=== PATIENT | female | born 1965 | race Asian ===

== ENCOUNTER 2017-05-11 15:49 | Emergency (ER) | payer OTHER ==
[~2017-05-11] VITALS: Ht 157.5 cm; Wt 61.0 kg
[2017-05-11 16:04] VITALS: BP 150/98
== END 2017-05-11 18:08 | disposition home or self-care (01) ==
LOC: ED 18:00
DX: B02.9 Zoster without complications (principal); M06.9 Rheumatoid arthritis, unspecified
CPT/HCPCS: 99283

== ENCOUNTER 2017-10-04 08:28 | Inpatient (IN) | payer OTHER ==
[~2017-10-04] VITALS: Ht 154.9 cm; Wt 67.3 kg
[2017-10-04] MEDS ORDERED: SODIUM CHLORIDE FLUSH 10ML SYR IVF ONE (09:00)
[2017-10-04] MEDS ORDERED: SODIUM CHLORIDE 0.9% 1,000ML IVBOLUS ONE (09:00)
[2017-10-04] MEDS ORDERED: MORPHINE SULFATE 4 MG/ML, 1ML IVPush PRN ×3 (09:00→19:30)
[2017-10-04] MEDS ORDERED: ONDANSETRON 2MG/ML, 2ML IVPush ONE (09:00)
[2017-10-04] MEDS ORDERED: MORPHINE SULFATE 4 MG/ML, 1ML ONE (09:09)
[2017-10-04] MEDS ORDERED: ONDANSETRON 2MG/ML, 2ML ONE ×2 (09:09→10:58)
[2017-10-04 10:34] LABS: BASOPHILS # (AUTO) 0.03 x10^3/uL (0-0.1); BASOPHILS % (AUTO) 0 % (0-1); EOSINOPHILS # (AUTO) 0.05 x10^3/uL (0-0.4); EOSINOPHILS % (AUTO) 1 % (1-7); LYMPHOCYTES # (AUTO) 0.85 x10^3/uL (1-3.4); LYMPHOCYTES % (AUTO) 8 % (22-44); MD NO; MEAN CORPUSCULAR HEMOGLOBIN 32.5 pg (27.0-34.8); MEAN CORPUSCULAR HGB CONC 34.2 g/dL (32.4-35.8); MEAN CORPUSCULAR VOLUME 95.1 fL (80-100); MEAN PLATELET VOLUME 11.1 fL (7.4-10.4); MONOCYTES # (AUTO) 0.39 x10^3/uL (0.2-0.8); MONOCYTES % (AUTO) 4 % (2-9); NEUTROPHILS # (AUTO) 9.14 x10^3/uL (1.8-6.8); NEUTROPHILS % (AUTO) 87 % (42-75); PLATELET COUNT 173 x10^3/uL (130-400); RED BLOOD COUNT 4.67 x10^6/uL (3.82-5.3); RED CELL DISTRIBUTION WIDTH 13.4 % (9.6-15.2)
[2017-10-04 10:46] LABS: ALANINE AMINOTRANSFERASE 31 U/L (12-78); ALBUMIN 4.1 g/dL (3.4-5.0); ANION GAP 8 mmol/L (5-15); CALCIUM 8.6 mg/dL (8.5-10.1); CHLORIDE 110 mmol/L (98-107); CREATININE 0.67 mg/dL (0.55-1.02)
[2017-10-04 10:48] LABS: ALKALINE PHOSPHATASE 73 U/L (45-117); BILIRUBIN,TOTAL 0.9 mg/dL (0.2-1.0); TOTAL PROTEIN 7.8 g/dL (6.4-8.2)
[2017-10-04] MEDS ORDERED: xeljanz (12:09)
[2017-10-04] MEDS ORDERED: coumadin (12:09)
[2017-10-04] MEDS ORDERED: METRONIDAZOLE PMX 500MG/100ML 100 ML ONE (12:26)
[2017-10-04] MEDS ORDERED: ONDANSETRON 2MG/ML, 2ML IVPush PRN (12:30)
[2017-10-04] MEDS ORDERED: METRONIDAZOLE PMX 500MG/100ML 100 ML IV ONE (12:30)
[2017-10-04] MEDS ORDERED: CEFTRIAXONE 1,000 MG in SODIUM CHLORIDE 0.9% 50 ML IV ONE (12:30)
[2017-10-04 12:38] LABS: PROTHROMBIN TIME 10.4 Seconds (9.6-11.5)
[2017-10-04 13:56] VITALS: BP 119/83
[2017-10-04 15:00] LABS: MICROSCOPIC AUTO
[2017-10-04 15:02] LABS: CULTURE INDICATED? YES
[2017-10-04] MEDS ORDERED: GABA-827 PO (15:40)
[2017-10-04] MEDS ORDERED: IBUP200T49 PO (15:41)
[2017-10-04] MEDS: PIPERACILLIN/TAZO/PMX 3.375GM 50 ML IV SCH ×2 (16:20→22:19)
[2017-10-04] MEDS: LACTATED RINGERS 1,000 ML IV SCH ×2 (16:22→22:30)
[2017-10-04] MEDS ORDERED: BUPIVACAINE/PF-EPI 0.5% 1:200K ONE (16:27)
[2017-10-04] MEDS ORDERED: MIDAZOLAM 1 MG/ML, 2ML ONE (18:03)
[2017-10-04] MEDS ORDERED: FENTANYL PF 250 MCG/5ML ONE (18:03)
[2017-10-04] MEDS ORDERED: ROCURONIUM 10 MG/ML,10ML ONE (18:59)
[2017-10-04] MEDS ORDERED: CEFOTETAN 1 GM ONE (18:59)
[2017-10-04] MEDS ORDERED: DEXAMETHASONE 4 MG/ML, 1ML ONE (18:59)
[2017-10-04] MEDS ORDERED: GLYCOPYRROLATE 0.2MG/1ML, 5ML ONE (18:59)
[2017-10-04] MEDS ORDERED: SUCCINYLCHOLINE 20 MG/ML, 10ML ONE (18:59)
[2017-10-04] MEDS ORDERED: PROPOFOL 10 MG/ML, 20ML ONE (18:59)
[2017-10-04] MEDS ORDERED: NEOSTIGMINE 1 MG/ML, 10ML ONE (18:59)
[2017-10-04] MEDS ORDERED: PROMETHAZINE 25 MG/ML, 1ML IV PRN (19:30)
[2017-10-04] MEDS ORDERED: OXYcodone 5 MG/5 ML ORAL.SOL UDC PO PRN (19:30)
[2017-10-04] MEDS ORDERED: ACETAMINOPHEN 325 MG TABLET PO PRN ×2 (19:30→23:45)
[2017-10-04] MEDS ORDERED: MEPERIDINE/PF 25MG/0.5ML IVPush PRN (19:30)
[2017-10-04] MEDS ORDERED: ALBUTEROL SULFATE 2.5 MG/3 ML NPPB PRN (19:30)
[2017-10-04] MEDS: FENTANYL PF 100 MCG/2ML IV PRN ×3 (20:13→20:30)
[2017-10-04] MEDS ORDERED: ACETAMINOPHEN 650 MG/20.3 ML UDC ONE (20:14)
[2017-10-04] MEDS ORDERED: FENTANYL PF 100 MCG/2ML ONE (20:14)
[2017-10-04] MEDS ORDERED: OXYcodone 5 MG/5 ML ORAL.SOL UDC ONE (20:14)
[2017-10-04 21:41] VITALS: BP 146/79
[2017-10-04] MEDS ORDERED: DIPHENHYDRAMINE 25 MG CAPSULE PO PRN (23:45)
[2017-10-04] MEDS ORDERED: DIPHENHYDRAMINE 50 MG/ML, 1ML IV PRN (23:45)
[2017-10-04] MEDS ORDERED: ONDANSETRON 2MG/ML, 2ML IV PRN (23:45)
[2017-10-04] MEDS ORDERED: ENALAPRILAT 1.25 MG/ML, 2ML IV PRN (23:45)
[2017-10-04] MEDS ORDERED: KETOROLAC 30 MG/1 ML IV PRN (23:45)
[2017-10-04] MEDS ORDERED: hydrALAzine 20 MG/ML, 1ML IV PRN (23:45)
[2017-10-04] MEDS ORDERED: ACETAMINOPHEN 650 MG SUPP PR PRN (23:45)
[2017-10-05] MEDS: CEFOTETAN PMX 1GM/50ML 50 ML IVPB SCH ×2 (00:14→12:05)
[2017-10-05] MEDS: ENOXAPARIN 40 MG/0.4 ML SQ SCH (00:15)
[2017-10-05] MEDS: LACTATED RINGERS 1,000 ML IV SCH ×4 (00:15→19:23)
[2017-10-05 02:01] VITALS: BP 109/55
[2017-10-05] MEDS: morphine SULFATE 10 MG/ML, 1ML IV PRN ×4 (02:13→23:30)
[2017-10-05 05:48] LABS: BASOPHILS % (AUTO) 0 % (0-1); CHLORIDE 109 mmol/L (98-107); EOSINOPHILS # (AUTO) 0.01 x10^3/uL (0-0.4); EOSINOPHILS % (AUTO) 0 % (1-7); LYMPHOCYTES # (AUTO) 0.41 x10^3/uL (1-3.4); LYMPHOCYTES % (AUTO) 6 % (22-44); MD NO; MEAN CORPUSCULAR HEMOGLOBIN 32.4 pg (27.0-34.8); MEAN CORPUSCULAR HGB CONC 34.1 g/dL (32.4-35.8); MEAN CORPUSCULAR VOLUME 94.8 fL (80-100); MEAN PLATELET VOLUME 11.4 fL (7.4-10.4); MONOCYTES # (AUTO) 0.11 x10^3/uL (0.2-0.8); MONOCYTES % (AUTO) 2 % (2-9); NEUTROPHILS # (AUTO) 6.87 x10^3/uL (1.8-6.8); NEUTROPHILS % (AUTO) 93 % (42-75); PLATELET COUNT 161 x10^3/uL (130-400); RED BLOOD COUNT 4.11 x10^6/uL (3.82-5.3); RED CELL DISTRIBUTION WIDTH 13.2 % (9.6-15.2)
[2017-10-05 05:52] LABS: ALANINE AMINOTRANSFERASE 69 U/L (12-78); ALBUMIN 3.3 g/dL (3.4-5.0); ALKALINE PHOSPHATASE 66 U/L (45-117); ANION GAP 8 mmol/L (5-15); BILIRUBIN,TOTAL 0.6 mg/dL (0.2-1.0); CREATININE 0.93 mg/dL (0.55-1.02); TOTAL PROTEIN 6.5 g/dL (6.4-8.2)
[2017-10-05 07:02] VITALS: BP 96/60
[2017-10-05 12:40] VITALS: BP 109/70
[2017-10-05 19:03] VITALS: BP 135/71
[2017-10-05] MEDS: HYDROcodone/APAP 5/325 TABLET PO PRN (21:19)
[2017-10-06] MEDS: ENOXAPARIN 40 MG/0.4 ML SQ SCH
[2017-10-06 01:32] VITALS: BP 104/67
[2017-10-06 07:56] VITALS: BP 110/69
[2017-10-06] MEDS: LACTATED RINGERS 1,000 ML IV SCH (08:00)
[2017-10-06] MEDS: HYDROcodone/APAP 5/325 TABLET PO PRN (11:12)
[2017-10-06 13:00] VITALS: BP 129/84
[2017-10-06] MEDS ORDERED: HYDR-3240 PO (13:10)
[2017-10-06] MEDS ORDERED: DOCU-131 PO (13:10)
[2017-10-06] MEDS ORDERED: ONDA4TAB7 PO (13:10)
== END 2017-10-06 14:00 | disposition home or self-care (01) | DRG 419 ==
LOC: ED 10:42 → 3NE 12:12 → DCLOUNGE 10-06 13:46
PROVIDERS: ADMIT Hospitalist; ATTEND Hospitalist
PROC: 0FT44ZZ Resection of Gallbladder, Percutaneous Endoscopic Approach (ICD-10-PCS; principal; 2017-10-04 15:45)
DX: K81.0 Acute cholecystitis (principal); M06.9 Rheumatoid arthritis, unspecified; Z86.11 Personal history of tuberculosis
CPT/HCPCS: 36415; 74022; 76700; 80053; 81001; 83690; 85025; 85610; 87086; 88304; 93005; 96374; 96375; 99285; J0696; J1100; J1650; J2250; J2405; J2543; J2704; J2710; J3010; J3490; J0330; J2270; J7030; J7120; S0074